=== PATIENT | male | born 1955 | race Caucasian/White ===

== ENCOUNTER 2023-11-25 14:36 | Emergency (ER) | payer OTHER ==
[2023-11-25] MEDS ORDERED: ONDANSETRON 4 MG/2 ML VIAL ONE (15:20)
[2023-11-25] MEDS ORDERED: MORPHINE 4 MG/ML SYR ONE (15:20)
[2023-11-25] MEDS ORDERED: FAMOTIDINE 20 MG/2 ML VIAL IV ONE (15:23)
[2023-11-25] MEDS ORDERED: NA CHLORIDE 0.9% 1,000 ML ONE (15:23)
[2023-11-25 15:30] LABS: Absolute Eosinophils 0.1 K/uL (0-0.5); Absolute Lymphocytes (CBC) 0.3 K/uL (0.7-4.9); Absolute Monocytes 0.1 K/uL (0.1-1.3); Absolute Neutrophil 1.5 K/uL (1.8-8.0); Basophils % 0.5 % (0-1.3); Eosinophils % 2.8 % (0-4.4); Hematocrit 30.1 % (39.6-49.0); Lymphocytes % 15.4 % (15.3-44.8); MCH 39.5 pg (27.0-35.0); MCHC 33.2 g/dL (32.0-36.0); MCV 118.8 fL (80-100); Monocytes % 7.5 % (3.3-12.3); Neutrophils % 73.8 % (41.7-73.7); Nucleated Red Blood Cells % 0.4 % (0-0); Platelets 123 thou/uL (152-406); RBC Red Blood Cell Count 2.53 M/uL (4.33-5.43); Red Cell Distribution Width 15.4 % (12.1-15.2)
[2023-11-25 15:54] LABS: Albumin 3.7 g/dL (3.4-5.0); Albumin/Globulin Ratio 1.1 (1.1-1.8); Anion Gap 8.7 mEq/L (5.0-15.0); Bilirubin Total 2.1 mg/dL (0.2-1.0); Globulin 3.3 g/dL (2.3-3.5); Potassium 3.7 mEq/L (3.5-5.1); Troponin High Sensitivity 3.2 pg/mL (<58.9)
[2023-11-25] MEDS ORDERED: DIAZEPAM 5 MG TABLET ONE (16:28)
[2023-11-25 16:35] LABS: Specific Gravity 1.023 (1.005-1.030); Sqamous Epithelial <5 /HPF (None Seen); Urine Bacteria None Seen /HPF (<20); Urine Bilirubin NEGATIVE (Negative); Urine Blood Negative (Negative); Urine Clarity Clear (Clear); Urine Color Yellow (Yellow); Urine Culture Reflex Order NOT NEEDED; Urine Glucose NEGATIVE (Negative); Urine Ketones NEGATIVE (Negative); Urine Microscopic Reflex YN ORDER UMIC; Urine Mucus Slight /HPF (None Seen); Urine Nitrite NEGATIVE (Negative); Urine Protein TRACE (Negative); Urine Urobilinogen 3+ (Normal); Urine WBC <5 /HPF (<5)
--- NOTE | 2023-11-25 16:39 | RAD REPORT ---
EXAM DESCRIPTION: Alexus Single View11/25/2023 4:01 pm CLINICAL HISTORY: Chest pain COMPARISON: none FINDINGS: The lungs appear clear of acute infiltrate. The heart is normal size IMPRESSION: No acute abnormalities displayed
[2023-11-25] MEDS ORDERED: GABAPENTIN 300 MG CAP ONE (17:30)
[2023-11-25] MEDS ORDERED: KETOROLAC 30 MG/ML INJ ONE (17:31)
--- NOTE | 2023-11-25 17:38 | RAD REPORT ---
EXAM DESCRIPTION: USExtfrancisco Venous Uni Ltd11/25/2023 5:23 pm CLINICAL HISTORY: Right leg pain COMPARISON: None. FINDINGS: Right common femoral, superficial femoral, greater saphenous, popliteal and right posterio r tibial veins are compressible and demonstrate augmentation. Doppler demonstrates good flow. Grayscale, color and spectral analysis performed on all vessels IMPRESSION: No evidence of deep venous thrombosis involving the right lower extremity.
--- NOTE | 2023-11-25 17:51 | EDPHYS ---
Physician Documentation [facility] Name: Agustin Ybarra Age: 68 yrs Sex: Male : 1955 Arrival Date: 11/25/2023 Time: 14:36 Bed 24 Private MD: Jose Alfredo Sheriff ED Physician Kristopher Belcher HPI: 11/25 00:16 This 68 yrs old Male presents to ER via Wheelchair with complaints of Pain All Over. kb 00:16 Pt is a 68 year old male who presents for pain to right side of body that started about kb a month ago. States the pain comes on every night, but it came back at 0400 this morning and has been worse than previous episodes. States the pain is to RUE, RLE and was in right side of back. States the pain in his back has resolved, but the pain in the extremities is still unbearable. Pain waxes and wanes, comes on like a spasm. . Historical: - Allergies: 11/24 14:49 PENICILLINS; mb9 - Home Meds: 14:47 ultomiris [Active]; mb9 - PMHx: 14:46 etoh abuse; Hyperlipidemia; Hypertension; mb9 14:47 Aplastic anemia; PNH; mb9 - PSHx: 14:47 None; mb9 - Immunization history:: Adult Immunizations up to date. - Infectious Disease History:: Denies. - Social history:: Smoking status: Patient denies any tobacco usage or history of. ROS: 11/25 00:16 Constitutional: As per HPI kb Exam: 11/24 16:59 Head/Face: Normocephalic, atraumatic. ENT: Moist Mucous membranes Cardiovascular: Regular rate Respiratory: Respirations even and unlabored. No increased work of breathing. Talking in full sentences Abdomen/GI: Soft, non-tender. No distention Back: No spinal tenderness. No costovertebral tenderness. Full range of motion. Skin: Warm, dry with normal turgor. Normal color. MS/ Extremity: Pulses equal, no cyanosis. Neurovascular intact. Full, normal range of motion. Neuro: Awake and alert, GCS 15, oriented to person, place, time, and situation. Moves all extremities. Normal gait. ECG was reviewed by the Attending Physician. 11/25 00:16 Constitutional: The patient appears alert, awake, in obvious pain, kb Vital Signs: 11/24 14:44 BP 99 / 60; Pulse 100; Resp 18; Pulse Ox 100% on R/A; Weight 83.91 kg; Height 5 ft. 10 mb9 in. ; Pain 10/10; 16:30 BP 135 / 79; Pulse 106; Resp 22 S; Pulse Ox 99% on R/A; as6 17:37 BP 119 / 70; Pulse 92; Resp 18; Pulse Ox 100% ; as6 14:44 Body Mass Index 26.54 (83.91 kg, 177.8 cm) mb9 14:44 Pain Scale: Adult mb9 MDM: 14:39 Patient medically screened. kb 17:48 Counseling: I had a detailed discussion with the patient and/or guardian regarding the kb historical points, exam findings, and any diagnostic results supporting the discharge/admit diagnosis, lab results, radiology results, the need for outpatient follow up, a family practitioner, a neurologist, to return to the emergency department if symptoms worsen or persist or if there are any questions or concerns that arise at home. ED course: Pain now improved. Pt and spouse educated on results and need for follow up with PCP/neurologist. Verbal understanding received. Pt had MRI of spine done on Friday and has follow up scheduled to get results from PCP. . 11/25 00:16 Differential diagnosis: dvt, neuropathy, muscle spasm, uti, kidney stone. Data kb reviewed: vital signs, nurses notes. Historians other than the Patient: Spouse/Significant Other: . Response to treatment: the patient's symptoms have markedly improved after treatment. 11/24 14:50 Order name: CBC with Diff; Complete Time: 18:15 kb 11/24 14:50 Order name: CMP; Complete Time: 16:04 kb 11/24 14:50 Order name: Lipase; Complete Time: 16:04 kb 11/24 14:50 Order name: Urinalysis w/ reflexes; Complete Time: 16:45 kb 11/24 14:50 Order name: Troponin HS; Complete Time: 16:04 kb 11/24 15:36 Order name: CBC Smear Scan; Complete Time: 18:15 EDMS 11/24 18:04 Order name: Manual Differential; Complete Time: 18:15 EDMS 11/24 14:50 Order name: XRAY Chest (1 view); Complete Time: 16:45 kb 11/24 16:55 Order name: US Extremity Venous Unilateral Ltd; Complete Time: 17:39 kb 11/24 14:50 Order name: EKG; Complete Time: 14:51 kb 11/24 14:50 Order name: IV Saline Lock; Complete Time: 15:19 kb 11/24 14:50 Order name: Labs collected and sent; Complete Time: 15:19 kb 11/24 14:50 Order name: EKG - Nurse/Tech; Complete Time: 16:14 kb EC/04 16:59 Rate is 105 beats/min. Rhythm is regular. QRS Marshall is Normal. WI interval is normal at kb 140 msec. QRS interval is normal at 86 msec. QT interval is normal at 433 msec. Administered Medications: 15:28 Drug: morphine IVP or IV 4 mg IVP once over 4 mins Route: IVP; Infused Over: 4 mins; as6 Site: right antecubital; 18:17 Follow up: Response: No adverse reaction as6 15:29 Drug: NS 0.9% IV 1000 ml IV at 1 bolus Per protocol; 1000 mL bolus Route: IV; Rate: 1 as6 bolus; Site: right antecubital; 18:16 Follow up: Response: No adverse reaction; IV Status: Completed infusion; IV Intake: as6 1000ml 15:29 Drug: Famotidine IVP 20 mg IVP once; dilute with 10 mL 0.9% NaCl; give over 2 minutes as6 Route: IVP; Site: right antecubital; 18:16 Follow up: Response: No adverse reaction as6 15:29 Drug: Ondansetron IVP 4 mg IVP once; over 2 minutes Route: IVP; Site: right antecubital;as6 18:17 Follow up: Response: No adverse reaction as6 16:29 Drug: Diazepam PO 5 mg PO once Route: PO; as6 18:16 Follow up: Response: No adverse reaction as6 17:34 Drug: Gabapentin PO 300 mg PO once Route: PO; as6 18:16 Follow up: Response: No adverse reaction as6 17:34 Drug: Ketorolac IVP 15 mg IVP once Route: IVP; Site: right antecubital; as6 18:16 Follow up: Response: No adverse reaction as6 Disposition Summary: 11/25/23 17:51 Discharge Ordered Notes: Location: Home kb Condition: Stable kb Diagnosis - Pain in right leg kb - Pain in right arm kb Followup: kb - With: Emergency Department - When: As needed - Reason: Worsening of condition Followup: kb - With: Private Physician - When: 2 - 3 days - Reason: Recheck today's complaints, Continuance of care, Re-evaluation by your physician Discharge Instructions: - Discharge Summary Sheet kb - Peripheral Neuropathy kb - Muscle Cramps and Spasms, [id number] kb Forms: - Medication Reconciliation Form kb - Antibiotic Education kb - Prescription Opioid Use kb - Patient Portal Instructions kb - Leadership Thank You Letter kb Prescriptions: - Neurontin 300 mg Oral Capsule - take 1 capsule ORAL route At bedtime; 20 capsule; Refills: 0, Product Selection kb Permitted - orphenadrine citrate 100 mg Oral Tablet Sustained Release - take 1 tablet ORAL route 2 times per day As needed; 20 tablet; Refills: 0, kb Product Selection Permitted Signatures: Dispatcher [employer] [facility] Kaye Kennedy, MIGUEL KINDERGARTEN AIDE-Scott Coyle RN RN as6 Arcelia Fallon RN RN mb9 Corrections: (The following items were deleted from the chart) 14:49 14:46 Allergies: No Known Allergies; mb9 mb9 16:55 16:55 Extremity Venous Uni Ltd+[email or web address] ordered. [facility] 11/25 00:16 06/ 16:59 Constitutional: This is a well developed, well nourished patient who is kb awake, alert, and in no acute distress. Head/Face: Normocephalic, atraumatic. ENT: Moist Mucous membranes Cardiovascular: Regular rate Respiratory: Respirations even and unlabored. No increased work of breathing. Talking in full sentences Abdomen/GI: Soft, non-tender. No distention Back: No spinal tenderness. No costovertebral tenderness. Full range of motion. Skin: Warm, dry with normal turgor. Normal color. MS/ Extremity: Pulses equal, no cyanosis. Neurovascular intact. Full, normal range of motion. Neuro: Awake and alert, GCS 15, oriented to person, place, time, and situation. Moves all extremities. Normal gait. kb
--- NOTE | 2023-11-25 17:51 | ER ---
Nurse's Notes [facility] Name: Agustin Ybarra Age: 68 yrs Sex: Male : 1955 Arrival Date: 11/25/2023 Time: 14:36 Bed 24 Private MD: Jose Alfredo Sheriff Diagnosis: Pain in right leg;Pain in right arm Presentation: 11/24 14:44 Chief complaint: Patient states: "I've been having severe pain in my right shoulder mb9 down my right leg and knee for months, it got worse today.". Coronavirus screen: At this time, the client does not indicate any symptoms associated with coronavirus-19. Ebola Screen: No symptoms or risks identified at this time. Initial Sepsis Screen: Does the patient meet any 2 criteria? No. Patient's initial sepsis screen is negative. Does the patient have a suspected source of infection? No. Patient's initial sepsis screen is negative. Risk Assessment: Do you want to hurt yourself or someone else? Patient reports no desire to harm self or others. Onset of symptoms was November 25, 2023. 14:44 Method Of Arrival: Wheelchair 9 14:44 Acuity: MELVIN 3 mb9 Triage Assessment: 14:48 General: Appears uncomfortable, Behavior is anxious. Pain: Complains of pain in right mb9 arm and right leg Pain currently is 10 out of 10 on a pain scale. EENT: No signs and/or symptoms were reported regarding the EENT system. Neuro: Level of Consciousness is awake, alert, obeys commands, Oriented to person, place, time, situation, Appropriate for age. Cardiovascular: Patient's skin is warm and dry. Respiratory: Airway is patent Respiratory effort is even, unlabored, Respiratory pattern is regular, symmetrical. GI: No signs and/or symptoms were reported involving the gastrointestinal system. : No signs and/or symptoms were reported regarding the genitourinary system. Derm: Skin is pink, warm \\T\\ dry. Musculoskeletal: Range of motion: limited in right shoulder, right hip and right knee. Historical: - Allergies: 14:49 PENICILLINS; mb9 - Home Meds: 14:47 ultomiris [Active]; mb9 - PMHx: 14:46 etoh abuse; Hyperlipidemia; Hypertension; mb9 14:47 Aplastic anemia; PNH; mb9 - PSHx: 14:47 None; mb9 - Immunization history:: Adult Immunizations up to date. - Infectious Disease History:: Denies. - Social history:: Smoking status: Patient denies any tobacco usage or history of. Screenin:30 [facility] ED Fall Risk Assessment (Adult) History of falling in the last 3 months, as6 including since admission No falls in past 3 months (0 pts) Confusion or Disorientation No (0 pts) Intoxicated or Sedated No (0 pts) Impaired Gait Yes (1 pt) Mobility Assist Device Used No (0 pt) Altered Elimination No (0 pt) Score/Fall Risk Level 0 - 2 = Low Risk Oriented to surroundings, Maintained a safe environment, Educated pt \\T\\ family on fall prevention, incl call for assistance when getting out of bed, Assessed \\T\\ reinforced patient's understanding of fall precautions. Abuse screen: Denies threats or abuse. Denies injuries from another. Nutritional screening: No deficits noted. Tuberculosis screening: No symptoms or risk factors identified. Assessment: 16:30 General: Behavior is restless. Pain: Complains of pain in right knee and right hip and as6 right shoulder and right leg and right arm. 17:37 General: Behavior is agitated, restless. as6 18:17 Reassessment: Patient states feeling better. as6 Vital Signs: 14:44 BP 99 / 60; Pulse 100; Resp 18; Pulse Ox 100% on R/A; Weight 83.91 kg; Height 5 ft. 10 mb9 in. ; Pain 10/10; 16:30 BP 135 / 79; Pulse 106; Resp 22 S; Pulse Ox 99% on R/A; as6 17:37 BP 119 / 70; Pulse 92; Resp 18; Pulse Ox 100% ; as6 14:44 Body Mass Index 26.54 (83.91 kg, 177.8 cm) mb9 14:44 Pain Scale: Adult mb9 ED Course: 14:37 Patient arrived in ED. mr 14:37 Jose Alfredo Sheriff MD is Private Physician. mr 14:39 Kaye Kennedy FNP-C is [facility]. kb 14:39 Kristopher Belcher MD is Attending Physician. kb 14:46 Triage completed. mb9 14:47 Arm band placed on. mb9 15:19 Lipase Sent. as6 15:19 CMP Sent. as6 15:19 CBC with Diff Sent. as6 15:19 Troponin HS Sent. as6 15:20 Inserted saline lock: 20 gauge in right antecubital area, using aseptic technique. as6 Blood collected. 16:03 XRAY Chest (1 view) In Process Unspecified. EDMS 16:14 Scott Briseno, RN is Primary Nurse. as6 16:31 Bed in low position. Call light in reach. Side rails up X2. Client placed on continuous as6 cardiac and pulse oximetry monitoring. NIBP monitoring applied. theatre arts professor on. 17:25 US Extremity Venous Unilateral Ltd In Process Unspecified. EDMS 18:17 Provided Education on: follow up. as6 18:17 No provider procedures requiring assistance completed. IV discontinued, intact, as6 bleeding controlled, No redness/swelling at site. Pressure dressing applied. Administered Medications: 15:28 Drug: morphine IVP or IV 4 mg IVP once over 4 mins Route: IVP; Infused Over: 4 mins; as6 Site: right antecubital; 18:17 Follow up: Response: No adverse reaction as6 15:29 Drug: NS 0.9% IV 1000 ml IV at 1 bolus Per protocol; 1000 mL bolus Route: IV; Rate: 1 as6 bolus; Site: right antecubital; 18:16 Follow up: Response: No adverse reaction; IV Status: Completed infusion; IV Intake: as6 1000ml 15:29 Drug: Famotidine IVP 20 mg IVP once; dilute with 10 mL 0.9% NaCl; give over 2 minutes as6 Route: IVP; Site: right antecubital; 18:16 Follow up: Response: No adverse reaction as6 15:29 Drug: Ondansetron IVP 4 mg IVP once; over 2 minutes Route: IVP; Site: right antecubital;as6 18:17 Follow up: Response: No adverse reaction as6 16:29 Drug: Diazepam PO 5 mg PO once Route: PO; as6 18:16 Follow up: Response: No adverse reaction as6 17:34 Drug: Gabapentin PO 300 mg PO once Route: PO; as6 18:16 Follow up: Response: No adverse reaction as6 17:34 Drug: Ketorolac IVP 15 mg IVP once Route: IVP; Site: right antecubital; as6 18:16 Follow up: Response: No adverse reaction as6 Medication: 16:31 VIS not applicable for this client. as6 Intake: 18:16 IV: 1000ml; Total: 1000ml. as6 Outcome: 17:51 Discharge ordered by MD. ford 18:17 Discharged to home via wheelchair, with family, as6 18:17 Condition: stable 18:17 Discharge instructions given to patient, family, Instructed on discharge instructions, follow up and referral plans. medication usage, Demonstrated understanding of instructions, follow-up care, medications, Prescriptions given X 2, 18:17 Patient left the ED. as6 Signatures: Dispatcher [employer] EDMS Kaye Kennedy, ONCOLOGY COORDINATOR-C ONCOLOGY COORDINATOR-CkArcelia Morgan, Reg Reg mr Scott Briseno, RN RN as6 Arcelia Fallon, RN RN mb9 Corrections: (The following items were deleted from the chart) 14:47 14:44 Pulse 100bpm; Resp 18bpm; Pulse Ox 100%; 83.91 kg; Height 5 ft. 10 in.; BMI: mb9 26.5; Pain 04/01, Adult; mb9 14:49 14:46 Allergies: No Known Allergies; mb9 mb9
[2023-11-25 18:02] LABS: Differential Total Cells Count 100; Eosinophils 2 % (0-3); Lymphocytes 20 % (15-42); Monocytes 8 % (0-10); Segmented Neutrophils 75 % (40-80); White Blood Cell Scan DIFF (OK)
[2023-11-25 18:03] LABS: Anisocytosis 1+; Blood Morphology Comment NOTED (NOT SEEN); Macrocytosis 2+; Platelet Estimate DECR; Teardrop Cell FEW
[2023-11-25 19:43] VITALS: BP 119/70; O2SAT 100
--- NOTE | 2023-11-26 16:33 | EKG ---
Test Date: 2023-11-25 Test Time: 16:12:46 Healthcare Economics Manager: MEASUREMENT RESULTS: Intervals: Rate: 105 DE: 140 QRSD: 86 QT: 328 QTc: 433 [place]: P: 64 DE: 140 QRS: 37 T: 71 INTERPRETIVE STATEMENTS: Sinus tachycardia Septal infarct, age undetermined Abnormal ECG No previous ECG available for comparison Electronically Signed On 11-26-23 16:32:25 CDT by Jg Henao
== END 2023-11-25 18:17 | disposition home or self-care (01) ==
LOC: ER 14:36
DX: M79.604 Pain in right leg (principal); M79.601 Pain in right arm
CPT/HCPCS: 96361; 93005; 85025; 81001; 36415; 84484; 83690; 80053; 71045; 93971; 96375; 96374; 99285; J2405; J7030